=== PATIENT | female | born 1975 | race Caucasian/White ===

== ENCOUNTER 2016-10-24 14:19 | Emergency (ER) | payer MEDICAID, OTHER ==
[~2016-10-24] VITALS: Ht 167.6 cm; Wt 93.0 kg
[~2016-10-24 14:19] MED LIST: PREN1TAB49 PO
[2016-10-24 14:22] VITALS: Ht 167.6 cm; Wt 93.0 kg
[2016-10-24] MEDS ORDERED: ACETAMINOPHEN 500 MG TAB PO STA (15:43)
--- NOTE | 2016-10-24 16:15 | RADRPT ---
PROCEDURE: Obstetrical ultrasound CLINICAL INDICATION: date uncertain TECHNIQUE: Multiple sonographic images of the pelvis were obtained. The images were reviewed on a PACS workstation. COMPARISON: None FINDINGS: The cervix is closed with a length of 4.3 cm. There is a single viable intrauterine gestation. Cardiac activity is present with 168 beats per minute. There is a variable presentation. The placenta is anterior. There is no evidence for an abruption or placenta previa. There is a normal amount of amniotic fluid with a maximum vertical pocket of 3.3 cm. Measurements were made in order to determine age. The results are as follows (cm): BPD =3.29 HC =11.78 AC =11.04 FL =2.02 Estimated gestational age by ultrasound of approximately 16 weeks, 2 days. The estimated date of delivery by ultrasound is 04/08/2017. EFW = 155 grams Bilateral ovaries are not visualized. There are no abnormal adnexal masses. IMPRESSION: Single viable intrauterine gestation of approximately 16 weeks, 2 days . The estimated date of delivery is 04/08/2017 . Normal amount of amniotic fluid. Estimated weight is 155 g. Bilateral ovaries are not visualized. There are no abnormal adnexal masses. RPTAT: EE Physician Jean Pierre Date Time Electronically viewed and signed by Physician Jean Pierre on 10/24/2016 16:14 /
--- NOTE | 2016-10-24 16:32 | RADRPT ---
PROCEDURE: US Lower extremity Venous. CLINICAL INDICATION: post right knee pain, r/o dvt TECHNIQUE: Multiple sonographic images of the right lower extremity deep venous system was obtaine d utilizing grayscale, color-flow, compressive sonography and doppler imaging with augmentation. Th e images were reviewed on a PACS workstation. COMPARISON: None. FINDINGS: There is normal compressibility and flow within the right common femoral, deep femoral, superficial femoral, posterior tibial, peroneal and popliteal veins. IMPRESSION: No sonographic evidence for deep venous thrombosis. RPTAT:AAJJ Physician Sachin Date Time Electronically viewed and signed by Physician Sachin on 10/24/2016 16:32 /
[2016-10-24 17:16] VITALS: BP 136/55; PULSE 98
[2016-10-24] MEDS ORDERED: ACET500C5 PO (17:24)
--- NOTE | 2016-10-24 18:29 | ERD ---
ER Documentation Chief Complaint Date/Time DATE: 10/24/16 TIME: 18:15 Chief Complaint Complains of right leh pain HPI 39-year-old female complaining of pain behind her right knee 3 weeks. Pain has got worse the last several days. She got a massage for her right knee 4 days ago, and noticed bruising afterwards. She is able to walk, walk does not increase the pain. Patient states that she is approximately 4 month , and she has not had any care. She does have appointment with OB in 3 weeks. She has history of gestational diabetes in previous pregnancies, denies history of hypertension. Denies fever or chills. Denies pelvic pain or vaginal bleeding. Denies shortness of breath. ROS All systems reviewed and are negative except as per history of present illness. Medications Home Meds Active Scripts Acetaminophen* (Tylophen*) 500 Mg Capsule, 1 CAP PO Q6H Y for PAIN AND OR ELEVATED TEMP, #20 CAP Prov:CORNELIANUNU X. OPERATIONS SUPPORT SPECIALIST 10/24/16 Reported Medications Vits W-Ca,Fe,Fa(<1MG) () 1 Tab Tablet, PO DAILY 08/31/11 Allergies Allergies: Coded Allergies: No Known Allergy (Unverified , 09/01/11) PMhx/Soc Medical and Surgical Hx: pt denies Medical Hx, pt denies Surgical Hx History of Surgery: No Anesthesia Reaction: No Hx Neurological Disorder: No Hx Respiratory Disorders: No Hx Cardiac Disorders: No Hx Psychiatric Problems: No Hx Miscellaneous Medical Probl: No (NO MED HX) Hx Alcohol Use: No Hx Substance Use: No Hx Tobacco Use: No Smoking Status: Never smoker Physical Exam Vitals Vital Signs Date Time Temp Pulse Resp B/P Pulse Ox O2 Delivery O2 Flow Rate FiO2 10/24/16 17:16 98 149/65 10/24/16 17:16 136/55 10/24/16 14:22 98.6 120 20 176/100 98 Physical Exam General: Well-developed, obese, conscious and coherent, in no distress Skin: Warm and dry without rash, good texture and turgor Head: Normocephalic without evidence of trauma Eyes: Sclera and conjunctivae normal; pupils equal, round, and reactive to light; extraocular movements are intact Neck: Supple without meningismus or adenopathy. Carotids are equal. Trachea midline. No bruits or JVD Chest: Normal AP diameter. Good expansion without retractions. Nontender. Lungs are clear to auscultate bilaterally with good tidal volume Heart: Regular rate and rhythm. No murmur, rub, or gallops heard Abdomen: Obese and gravid, nontender without masses, guarding, or rebound. Bowel sounds are active. No hepatosplenomegaly Back: Without spinal or CVA tenderness Extremities: Posterior right knee tender to palpation, no mass palpated. Ecchymosis noted in the posterior right knee. Full range of motion. Good strength bilaterally. No clubbing, cyanosis, or edema. Peripheral pulses are intact. Sensation intact. Neuro: Alert and oriented 4, GCS 15. Cranial nerves grossly intact. Motor and sensory exams nonfocal. Moves all extremities. Speech clear. Gait normal Results 24 hrs Current Medications Medications (Trade) Dose Ordered Sig/[place] Route PRN Reason Start Time Stop Time Status Last Admin Dose Admin Acetaminophen (Tylenol Tab) 500 mg ONCE STAT PO 10/24/16 15:43 10/24/16 15:47 DC 10/24/16 16:19 PROCEDURE: US Lower extremity Venous. CLINICAL INDICATION: post right knee pain, r/o dvt TECHNIQUE: Multiple sonographic images of the right lower extremity deep venous system was obtained utilizing grayscale, color-flow, compressive sonography and doppler imaging with augmentation. The images were reviewed on a PACS workstation. COMPARISON: None. FINDINGS: There is normal compressibility and flow within the right common femoral, deep femoral, superficial femoral, posterior tibial, peroneal and popliteal veins. IMPRESSION: No sonographic evidence for deep venous thrombosis. RPTAT:AAJJ Physician Sachin Date Time Electronically viewed and signed by Physician Sachin on 10/24/2016 16: 32 MC/ CC: NUNU LOCKE NP PROCEDURE: Obstetrical ultrasound CLINICAL INDICATION: date uncertain TECHNIQUE: Multiple sonographic images of the pelvis were obtained. The images were reviewed on a PACS workstation. COMPARISON: None FINDINGS: The cervix is closed with a length of 4.3 cm. There is a single viable intrauterine gestation. Cardiac activity is present with 168 beats per minute. There is a variable presentation. The placenta is anterior. There is no evidence for an abruption or placenta previa. There is a normal amount of amniotic fluid with a maximum vertical pocket of 3.3 cm. Measurements were made in order to determine age. The results are as follows (cm): BPD = 3.29 HC = 11.78 AC = 11.04 FL = 2.02 Estimated gestational age by ultrasound of approximately 16 weeks, 2 days. The estimated date of delivery by ultrasound is 04/08/2017. EFW = 155 grams Bilateral ovaries are not visualized. There are no abnormal adnexal masses. IMPRESSION: Single viable intrauterine gestation of approximately 16 weeks, 2 days . The estimated date of delivery is 04/08/2017 . Normal amount of amniotic fluid. Estimated weight is 155 g. Bilateral ovaries are not visualized. There are no abnormal adnexal masses. RPTAT: EE Yoel Boudreaux Physician Date Time Electronically viewed and signed by Yoel Boudreaux Physician on 10/24/2016 16:14 RA/ CC: NUNU LOCKE OPERATIONS SUPPORT SPECIALIST Procedures/MDM Well-appearing 41-year-old female presented to ED with right knee pain. Doppler ultrasound is negative for DVT. I doubt she has Young's cyst. Likely her knee pain is due to contusion. Patient is approximately 4 months , she has not had prior care. She requests OB ultrasound in the ED. OB ultrasound shows single live IUP at 16 weeks 2 days. Patient is blood pressure on arrival is 176/100. Concerned about her elevated blood pressure during , I consulted nulliparous on-call, Dr. Morris. Dr. Morris states that hypertension at this stage of is likely due to chronic conditions, not preeclampsia. Patient is safe to go home if her SBP is below 150. Patient's blood pressure was rechecked, left arm 136/55, right arm 149/65. I do not think the patient needs antihypertensive in the ED. Patient given referral to primary care clinics and obstetricians for follow-up. Patient appears well, stable for discharge and outpatient management. Medical decision making shared with patient and family. Education provided to patient and family. Patient and family expressed understanding of the plan. Medications on discharge: Tylenol. Follow-up: Primary care provider in 2-3 days or return to ED if worse. Departure Diagnosis: Primary Impression: Pain of right leg Additional Impression: Normal IUP (intrauterine ) on ultrasound Condition: Stable Patient Instructions: Contusions (Bruises), , Established, Normal Symptoms Referrals: [facility] [address] [facility] [address] [place] [address] OFFICE FAX , [facility] [address] [place] [address] [address] [facility] [address] [place] [address] [address] [place], [facility] [address] [facility] [address] [address] [address] [facility] [address] [place] [address] [facility] [address] [place] [address] [facility] [address] - [place] [address], [facility] [address] [address] MILLER, [place] [address] [facility]. [address], [facility] [address] [address] IGLESIAS, [facility] [address] [place] [address] [facility] () Usted se ugalde hecho un examen mdico de control que le indica que no est en rachelle condicin que requiera tratamiento urgente en el Departamento de Emergencia. Un estudio ms profundo y el tratamiento de leo condicin pueden esperar sin ningn riesgo hasta que usted sea atendida/o en el consultorio de leo mdico o rachelle cl issa. Es responsabilidad suya arreglar rachelle jaymie para el seguimiento del juan m. MANEJO DE CONDICIONES NO URGENTES EN EL FUTURO 1) Si usted tiene un mdico de atencin primaria: Usted debera llamar a leo mdico de atencin primaria antes de venir al departamento de emergencia. Despus de las horas de consultorio, leo doctor o leo asociado/a est disponible por telfono. El mdico o enfermero de brittany en el servicio telefnico puede asesorarle por andrew medio para atender el problema, o juan m contrario se puede programar rachelle jaymie. 2) Si usted no tiene un mdico de atencin primaria: Llame al mdico o clnica de referencia que aparece abajo aliya las horas de consultorio para hacer rachelle jaymie para que le vean. CLINICAS: [facility] [phone] [address] [facility] [phone] [address] [facility]. [facility] [phone] [address] [facility]. [place] [id number] [phone] [facility]. [place] [address] [phone] [facility]. [phone] [address] Additional Instructions: Llame al doctor MAANA y juan carlos rachelle JAYMIE PARA DENTRO DE 2-3 BONDS.Dgale a la secretaria que nosotros le instruimos hacer esta jaymie.Avise o llame si leo condicin se empeora antes de la jaymie. Regresa aqui si peor o no mejor. NUNU LOCKE. CECILIO Oct 24, 2016 18:27
== END 2016-10-24 17:31 | disposition home or self-care (01) ==
LOC: FTE 14:19
DX: O99.89 Other specified diseases and conditions complicating pregnancy, childbirth and the puerperium (principal); M79.604 Pain in right leg; R40.2412 Glasgow coma scale score 13-15, at arrival to emergency department; Z3A.16 16 weeks gestation of pregnancy
CPT/HCPCS: 76805; 93971; Z7610